=== PATIENT | female | born 1995 | race Hispanic/Latino ===

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

== ENCOUNTER → 2017-10-01 | Outpatient (CLI) | payer OTHER ==
--- NOTE | 2017-10-01 12:56 | CT ---
EXAM DESCRIPTION: Abdomen w/wo Contrast CLINICAL HISTORY: ABDOMINAL PAIN, RIGHT LOWER QUADRANT PAIN COMPARISON: None Available TECHNIQUE: CT of the abdomen and Pelvis was performed with and without IV contrast. This exam was performed according to our departmental dose-optimization program, which includes automated exposure control, adjustment of the mA and/or kV according to patient size and/or use of iterative reconstruction technique. FINDINGS: Pre-IV contrast images show a tiny calcified granuloma in the left lung base. No additional lung base abnormality. No calcified gallstone or urinary tract calculus. There is a tiny calcified splenic granuloma. Linear calcification versus suture line is noted in the left hepatic lobe anteriorly. There is a moderate amount of free intermediate density fluid in the pelvis likely representing blood. The right ovary lies anterior to the uterus, and fluid extends from the right ovary into the cul-de-sac. The uterus and uterine cervix are unremarkable. The left ovary is unremarkable. There is a round low-density structure in the right ovary measuring just over 2 cm diameter which likely represents a physiologic cyst. No colonic wall thickening or pericolonic inflammation. The appendix is not identified, but I see no definite evidence of appendicitis. The terminal ileum and ileocecal junction are unremarkable. No adenopathy or pneumoperitoneum. The pancreas, adrenals and kidneys are unremarkable. No dilated small bowel loops. No suspicious bone lesion. IMPRESSION: Moderate amount of free intermediate density fluid in the pelvis likely representing blood related to a ruptured hemorrhagic right ovarian cyst. Ectopic is also not excluded, correlate with test. No additional abnormality in the abdomen or pelvis to explain patient's symptoms. A normal appendix is not identified, but I see no convincing evidence of appendicitis. Electronically signed by: Loy Cintron MD 10/01/2017 12:55 PM CDT
== END ==
LOC: CT 11:50
PROVIDERS: ATTEND Nurse Practitioner Family
DX: R10.31 Right lower quadrant pain (principal)

== ENCOUNTER 2018-04-09 22:16 | Emergency (ER) | payer MEDICAID, OTHER ==
--- NOTE | 2018-04-09 22:42 | ED.PDOC ---
History of Present Illness - General Chief Complaint: GI Problem Stated Complaint: n/vomiting, possible Pg Time Seen by Provider: 04/09/18 22:42 Information Source: patient - History of Present Illness Initial Comments: Patricia Schilling 22 y/o female came to ER N/V for 5 days unable to take anything down,generalized body aches and dull lower abdominal pain today.Denies vaginal bleeding.Stated had positive HCG done outpatient but no care started.LMP-09 February 2018 ;EDC-16 November 2017;EGA-8 weeks Ab0.. Abdominal Pain Onset Location: suprapubic Pain Radiation: back Quality: dull Timing/Duration: 24 hours Improving Factors: nothing Worsening Factors: nothing Associated Symptoms: other - see hpi Review of Systems - Review of Systems Constitutional: States: malaise EENTM: States: no symptoms reported Respiratory: States: no symptoms reported Cardiology: States: no symptoms reported Gastrointestinal/Abdominal: States: see HPI Genitourinary: States: no symptoms reported Musculoskeletal: States: no symptoms reported Skin: States: no symptoms reported Neurological: States: no symptoms reported Endocrine: States: no symptoms reported Hematologic/Lymphatic: States: no symptoms reported Past Medical History (General) - Patient Medical History Hx Seizures: No Hx Asthma: No Hx of COPD: No Hx Cardiac Disorders: No Hx Congestive Heart Failure: No Hx Hypertension: No Hx Diabetes: No Hx Gastroesophageal Reflux: No Surgical History: no surgical history - Vaccination History Hx Tetanus, Diphtheria Vaccination: No Hx Influenza Vaccination: No - Social History Hx Tobacco Use: Yes Hx Alcohol Use: Yes - occasional Hx Substance Use: No Hx Physical Abuse: No Hx Emotional Abuse: No - Female History Patient is a Female of Child Bearing Age (10 -59 yrs old): Yes Patient : Yes - LMP-2017 Family Medical History - Family History Grandparents Living Status: Hx Family Congestive Heart Failure: Yes Hx Family Hypertension: Yes Hx Cardiac Disease: Yes Hx Family Diabetes: Yes Physical Exam - Physical Exam General Appearance: Alert, Comfortable, No apparent distress Eyes, Ears, Nose, Throat Exam: normal ENT inspection, pharynx normal Neck: supple, normal inspection Respiratory: lungs clear, normal breath sounds Cardiovascular/Chest: normal peripheral pulses, regular rate, rhythm, no murmur Peripheral Pulses: No deficit Gastrointestinal/Abdominal: normal bowel sounds, soft, no organomegaly, tenderness - lower abdomen;no peritoneal signs, other - FHR-early Back Exam: no CVA tenderness, no vertebral tenderness Extremity: no pedal edema, no calf tenderness Neurologic: alert, oriented x 3 Skin Exam: normal color, warm/dry Progress - Progress Progress: 04/10/18 00:58 Vital Signs - 8 hr 04/09/18 04/09/18 04/10/18 22:49 23:40 00:53 Temperature 98.5 F 97.1 F L Pulse Rate [ 80 71 106 H left] Respiratory 18 18 18 Rate Blood Pressure 132/73 97/59 152/83 [left] O2 Sat by Pulse 100 100 99 Oximetry - Results/Orders Results/Orders: 04/09/18 22:44 IV Care:Saline Lock per Protoc QSHIFT HCG,QUALITATIVE URINE Stat 04/09/18 23:42 Catheter:Straight .ONCE 04/10/18 00:26 Sodium Chloride 0.9% 1000ML [Ns 1000 ml] 1,000 ml IVS ONCE Laboratory Results - last 24 hr 04/09/18 04/09/18 04/10/18 23:00 23:00 00:10 WBC 12.0 H RBC 4.40 Hgb 13.1 Hct 38.4 MCV 87.2 MCH 29.8 MCHC 34.2 RDW 12.7 Plt Count 375 MPV 8.5 Absolute Neuts (auto) 9.10 H Absolute Lymphs (auto) 1.20 Absolute Monos (auto) 1.50 H Absolute Eos (auto) 0.10 Absolute Basos (auto) 0.00 Neutrophils % 75.9 Lymphocytes % 10.3 L Monocytes % 12.6 H Eosinophils % 0.9 L Basophils % 0.3 Sodium 133 L Potassium 3.5 L Chloride 100 L Carbon Dioxide 20 L Anion Gap 16.5 BUN 7 Creatinine < 0.40 L BUN/Creatinine Ratio 17.0 Random Glucose 94 Serum Osmolality 264.1 L Calcium 9.7 Total Bilirubin 2.7 H* AST 47 H ALT 64 H Alkaline Phosphatase 89 Serum Total Protein 8.6 H Albumin 4.6 Globulin 4.0 H Albumin/Globulin Ratio 1.2 Lipase 21 L Urine Color Urine Appearance Urine pH Ur Specific [place] Urine Protein Urine Glucose (UA) Urine Ketones Urine Blood Urine Nitrite Urine Bilirubin Urine Urobilinogen Ur Leukocyte Esterase Urine RBC Urine WBC Ur Epithelial Cells Urine Bacteria Urine HCG, Qual Positive 04/10/18 00:10 WBC RBC Hgb Hct MCV MCH MCHC RDW Plt Count MPV Absolute Neuts (auto) Absolute Lymphs (auto) Absolute Monos (auto) Absolute Eos (auto) Absolute Basos (auto) Neutrophils % Lymphocytes % Monocytes % Eosinophils % Basophils % Sodium Potassium Chloride Carbon Dioxide Anion Gap BUN Creatinine BUN/Creatinine Ratio Random Glucose Serum Osmolality Calcium Total Bilirubin AST ALT Alkaline Phosphatase Serum Total Protein Albumin Globulin Albumin/Globulin Ratio Lipase Urine Color Yellow Urine Appearance Clear Urine pH 6.0 Ur Specific [place] 1.025 Urine Protein Trace Urine Glucose (UA) Negative Urine Ketones >=160 Urine Blood Negative Urine Nitrite Negative Urine Bilirubin Small H Urine Urobilinogen 1.0 Ur Leukocyte Esterase Negative Urine RBC 1-3 Urine WBC 1-3 Ur Epithelial Cells 3-5 Urine Bacteria 1+ Urine HCG, Qual Departure - Departure Clinical Impression: with 8 completed weeks gestation, Abdominal pain affecting , Hyperemesis affecting , antepartum, Abnormal LFTs Time of Disposition: 01:29 Disposition: Transfer to Hospital Condition: Fair Departure Forms: ED Discharge - Pt. Copy, Patient Portal Self Enrollment Referrals: Alhaji Emanuel MD [Primary Care Provider] - 1-2 Weeks Transfer to Outside Facility - Transfer Information Accepting Provider:: Dr. Agustin Roberts Accepting Facility: [facility] Reason for Transfer: OB
[2018-04-09] MEDS ORDERED: LACTATED RINGERS 1,000 ML IVS ONE (22:44)
[2018-04-09] MEDS ORDERED: ONDANSETRON INJ 4 MG/2 ML VIAL IV ONE (23:19)
[2018-04-10] MEDS ORDERED: SODIUM CHLORIDE 0.9% 1000ML 1,000 ML IVS ONE (00:26)
[2018-04-10 00:54] VITALS: O2SAT 99
[2018-04-10 02:02] VITALS: BP 113/64; TEMP 97.8
== END 2018-04-10 02:02 | disposition short-term general hospital (02) ==
LOC: ER 22:16
DX: O21.0 Mild hyperemesis gravidarum (principal); O99.89 Other specified diseases and conditions complicating pregnancy, childbirth and the puerperium; R10.9 Unspecified abdominal pain; R79.89 Other specified abnormal findings of blood chemistry; Z3A.08 8 weeks gestation of pregnancy; Z87.891 Personal history of nicotine dependence
CPT/HCPCS: 36415; 80053; 81001; 81025; 83690; 85025; J2405; J7030; J7120

== ENCOUNTER → 2020-05-27 | Outpatient (CLI) | payer OTHER | LOC: LAB.O 09:32 | PROVIDERS: ATTEND Obstetrics & Gynecology | DX: Z13.1 Encounter for screening for diabetes mellitus (principal); Z13.0 Encounter for screening for diseases of the blood and blood-forming organs and certain disorders involving the immune mechanism; Z3A.24 24 weeks gestation of pregnancy ==